=== PATIENT | female | born 2000 | race Caucasian/White ===

== ENCOUNTER 2019-08-19 03:36 | Emergency (ER) | payer OTHER ==
[~2019-08-19] VITALS: Ht 154.9 cm; Wt 62.3 kg
[2019-08-19] MEDS ORDERED: AMOXICILLIN875 MG PO (04:27)
[2019-08-19] MEDS ORDERED: ACETAMINOPHEN-1 EAC2 PO (04:27)
[2019-08-19] MEDS ORDERED: IBUPROFEN 800800 MG PO (04:27)
[2019-08-19 04:47] VITALS: BP 127/68
== END 2019-08-19 04:47 | disposition home or self-care (01) ==
LOC: M.ERS 03:36
DX: H66.93 Otitis media, unspecified, bilateral (principal); Z98.890 Other specified postprocedural states